=== PATIENT | female | born 2000 | race Caucasian/White ===

== ENCOUNTER 2021-02-10 11:02 | Emergency (ER) | payer SELFPAY ==
[~2021-02-10] VITALS: Ht 162.6 cm; Wt 49.4 kg
[2021-02-10 12:14] LABS: URINE BLOOD DIPSTICK NEGATIVE (NEGATIVE); URINE GLUCOSE - DIPSTICK NEGATIVE (NEGATIVE); URINE KETONE NEGATIVE (NEGATIVE); URINE LEUK ESTERASE TRACE (NEGATIVE); URINE PROTEIN - DIPSTICK NEGATIVE (NEG-TRACE); URINE UROBILINOGEN - DIPSTICK 0.2 E.U./dL (0.2)
[2021-02-10 12:20] LABS: URINE BILIRUBIN - DIPSTICK SMALL (NEGATIVE); URINE COLOR DK. YELLOW; URINE NITRITE - DIPSTICK POSITIVE (Negative)
[2021-02-10 12:21] LABS: URINE BACTERIA MODERATE hpf; URINE EPITHELIAL CELLS MODERATE EPI/hpf (0-FEW)
[2021-02-10] MEDS ORDERED: PRE-NATAL PO (13:04)
[2021-02-10] MEDS ORDERED: KEFLEX500 MG PO (13:04)
[2021-02-10 13:24] VITALS: BP 128/73
== END 2021-02-10 13:24 | disposition home or self-care (01) ==
LOC: ED 11:02
PROVIDERS: Family Medicine
DX: O23.41 Unspecified infection of urinary tract in pregnancy, first trimester (principal); O99.331 Smoking (tobacco) complicating pregnancy, first trimester; F17.210 Nicotine dependence, cigarettes, uncomplicated; Z3A.00 Weeks of gestation of pregnancy not specified; Z88.0 Allergy status to penicillin; Z87.440 Personal history of urinary (tract) infections